=== PATIENT | male | born 1995 | race Caucasian/White ===

== ENCOUNTER 2018-10-19 14:13 | Inpatient (IN) ==
[2018-10-19] MEDS ORDERED: SODIUM CHLORIDE 0.9% 1,000 ML IV STA ×2 (14:48→20:57)
[2018-10-19] MEDS ORDERED: INSULIN REGULAR 100 UNIT/ML IV STA (14:48)
[2018-10-19 14:57] LABS: Basophils # 0.1 10*3/uL (0.0-0.2); Eosinophils # 0.2 10*3/uL (0.0-0.87); Eosinophils % 2.1 % (0.00-10.9); Hematocrit 42.6 VOL% (42.0-52.0); Hemoglobin 14.6 GM/DL (14.0-18.0); Immature Granulocytes % 0.4 %; Immature Granulocytes Absolute 0.03 #; Lymphocytes # 1.3 10*3/uL (1.4-4.0); Mean Corpuscular HGB Conc 34.3 GM/DL (32-36); Mean Corpuscular Volume 85.5 FL (87-102); Monocytes % 6.6 % (1.7-12.7); Neutrophils % 72.9 % (38.7-73.9); Platelet Count 194 T/CUMM (130-400); Red Blood Count 4.98 MC/CUMM (3.8-5.5); Red Cell Distribution Width 12.1 % (9.3-17.3); White Blood Count 7.8 T/CUMM (4-12)
[2018-10-19 15:10] LABS: Apearance,Urine CLEAR (Clear); Bilirubin,Urine Negative (Negative); Blood, Urine Negative (Negative); Glucose,Urine (UA) >=500 mg/dL (Negative); Ketones,Urine 80 mg/dL (Negative); Nitrite,Urine Negative (Negative); Protein,Urine Negative; RBC,Urine 1 /HPF (0-4); Urine Color Straw (Yellow); Urine Specific Gravity 1.026 (1.001-1.035); Urine Urobilinogen < 2.0 EU/DL (0.2-1.0)
[2018-10-19 15:17] LABS: Albumin 3.5 G/DL (3.4-5.0); Bilirubin,Total 0.8 MG/DL (0.2-1.0); Calcium 8.2 MG/DL (8.5-10.1); Osmolality,Calculated 286.5 MOS/KG (273-304); Total Protein 6.7 G/DL (6.4-8.3)
[2018-10-19 16:20] LABS: ABG Base Excess -0.9 MMOL/L (-2.5-2.5); ABG HCO3 23.6 MMOL/L (20-26); ABG Oxygen Saturation 97.9 % (95-100); ABG PCO2 40.4 MM HG (35-48); ABG PH 7.383 (7.35-7.45); ABG TCO2 20.8 MMOL/L (23-27); Allen Test Positive; Pt O2 Delivery Device Room Air
[2018-10-19 17:09] LABS: Barbiturates Screen,Urine Negative (Negative); Benzodiazepines Screen,Urine Negative (Negative); Cannabinoid Screen,Urine Negative (Negative); Opiate Screen,Urine Negative (Negative); Phencyclidine Screen,Urine Negative (Negative)
[2018-10-19] MEDS ORDERED: MAGNESIUM SULF RIDER 2 GM in PREMIX 1 EACH IV PRN (18:18)
[2018-10-19] MEDS ORDERED: SODIUM BICARB INJ 100 MEQ in STERILE WATER INJ 400 ML IV PRN (18:18)
[2018-10-19] MEDS ORDERED: DEXTROSE 50% 25 GM/50 ML SYRINGE IV PRN ×2 (18:18)
[2018-10-19] MEDS ORDERED: INSULIN REGULAR DRIP 100 ML IV SCH (18:30)
[2018-10-19 20:17] LABS: Calcium 8.2 MG/DL (8.5-10.1); Osmolality,Calculated 280.8 MOS/KG (273-304)
[2018-10-19] MEDS ORDERED: INSULIN REGULAR 100 UNIT/ML SUBCUT STA (20:54)
[2018-10-19] MEDS: POTASSIUM CHLORIDE RIDER 10 MEQ in PREMIX 1 EACH IV PRN ×2 (22:40→23:38)
[2018-10-19] MEDS ORDERED: INSULIN GLARGINE 100 UNIT/ML SUBCUT ONE ×2 (23:38→23:45)
[2018-10-19] MEDS: INSULIN REGULAR 100 UNIT/ML SUBCUT SCH (23:45)
[2018-10-19] MEDS: SODIUM CHLORIDE 0.9% 1,000 ML IV SCH (23:45)
[2018-10-19 23:59] LABS: Calcium 7.7 MG/DL (8.5-10.1); Osmolality,Calculated 285.7 MOS/KG (273-304)
[2018-10-20] MEDS: POTASSIUM CHLORIDE RIDER 10 MEQ in PREMIX 1 EACH IV PRN ×4 (00:41→06:14)
[2018-10-20] MEDS: SODIUM CHLORIDE 0.9% 1,000 ML IV SCH (01:55)
[2018-10-20 02:20] LABS: Basophils # 0.1 10*3/uL (0.0-0.2); Basophils % 0.7 % (0.0-0.8); Eosinophils # 0.3 10*3/uL (0.0-0.87); Eosinophils % 3.4 % (0.00-10.9); Hematocrit 39.3 VOL% (42.0-52.0); Hemoglobin 13.3 GM/DL (14.0-18.0); Immature Granulocytes % 0.4 %; Immature Granulocytes Absolute 0.03 #; Lymphocytes # 2.8 10*3/uL (1.4-4.0); Lymphocytes % 34.5 % (21.2-54.2); Mean Corpuscular HGB Conc 33.8 GM/DL (32-36); Mean Platelet Volume 10.8 FL (9.6-12.0); Monocytes % 6.9 % (1.7-12.7); Neutrophils % 54.1 % (38.7-73.9); Platelet Count 166 T/CUMM (130-400); Red Blood Count 4.57 MC/CUMM (3.8-5.5); Red Cell Distribution Width 12.1 % (9.3-17.3); White Blood Count 8.1 T/CUMM (4-12)
[2018-10-20 02:39] LABS: Calcium 7.5 MG/DL (8.5-10.1); Osmolality,Calculated 284.1 MOS/KG (273-304)
[2018-10-20] MEDS: INSULIN REGULAR 100 UNIT/ML SUBCUT SCH ×5 (03:55→21:14)
[2018-10-20] MEDS ORDERED: DEXTROSE 5% NACL 0.9% 1,000 ML IV SCH (04:30)
[2018-10-20 06:29] LABS: Calcium 7.6 MG/DL (8.5-10.1); Osmolality,Calculated 282.3 MOS/KG (273-304)
[2018-10-20] MEDS ORDERED: DEXTROSE 50% 25 GM/50 ML SYRINGE IV PRN (07:54)
[2018-10-20] MEDS ORDERED: GLUCAGON 1 MG VIAL IM PRN (07:54)
[2018-10-20] MEDS: DEXT 5% NACL 0.45% KCL 20 MEQ 20 MEQ/1,000 ML BAG IV SCH ×3 (07:55→15:00)
[2018-10-20] MEDS ORDERED: INSULIN LISPRO 100 UNIT/ML SUBCUT SCH ×2 (08:00)
[2018-10-20] MEDS ORDERED: SODIUM CHLORIDE 0.45% 1,000 ML IV SCH (11:18)
[2018-10-20] MEDS ORDERED: INSULIN REGULAR 100 UNIT/ML ONE (12:04)
[2018-10-20] MEDS: INSULIN LISPRO 100 UNIT/ML SUBCUT SCH ×2 (12:05→16:25)
[2018-10-20] MEDS ORDERED: INSULIN GLARGINE 100 UNIT/ML SUBCUT SCH (21:00)
[2018-10-20] MEDS ORDERED: INSULIN GLARGINE 100 UNIT/ML SUBCUT ONE (23:12)
[2018-10-21 04:59] LABS: Calcium 8.6 MG/DL (8.5-10.1); Osmolality,Calculated 289.5 MOS/KG (273-304)
[2018-10-21] MEDS: INSULIN REGULAR 100 UNIT/ML SUBCUT SCH (09:18)
[2018-10-21] MEDS: INSULIN LISPRO 100 UNIT/ML SUBCUT SCH (09:18)
[2018-10-21 09:24] VITALS: BP 93/56
== END 2018-10-21 10:30 | disposition home or self-care (01) | DRG 638 ==
LOC: N.ED 14:13 → SUATTDRO 18:10 → N.EDINP 18:18 → SUATTDRO 18:18 → N.ICU 22:21 → N.4E 10-20 19:54
PROVIDERS: ADMIT Internal Medicine; ATTEND Internal Medicine

== ENCOUNTER 2019-02-05 08:15 | Inpatient (IN) ==
[2019-02-05] MEDS ORDERED: ONDANSETRON 4 MG/2 ML VIAL ONE (09:05)
[2019-02-05] MEDS ORDERED: ONDANSETRON 4 MG/2 ML VIAL IV STA (09:05)
[2019-02-05 09:11] LABS: Basophils # 0.1 10*3/uL (0.0-0.2); Basophils % 0.7 % (0.0-0.8); Eosinophils % 0.5 % (0.00-10.9); Hematocrit 46.7 VOL% (42.0-52.0); Hemoglobin 14.9 GM/DL (14.0-18.0); Immature Granulocytes % 0.8 %; Immature Granulocytes Absolute 0.07 #; Lymphocytes # 0.9 10*3/uL (1.4-4.0); Lymphocytes % 10.6 % (21.2-54.2); Mean Corpuscular HGB Conc 31.9 GM/DL (32-36); Mean Corpuscular Volume 89.6 FL (87-102); Monocytes % 3.2 % (1.7-12.7); Neutrophils % 84.2 % (38.7-73.9); Platelet Count 178 T/CUMM (130-400); Red Blood Count 5.21 MC/CUMM (3.8-5.5); Red Cell Distribution Width 12.1 % (9.3-17.3); White Blood Count 8.4 T/CUMM (4-12)
[2019-02-05] MEDS ORDERED: INSULIN REGULAR 100 UNIT/ML IV STA (09:29)
[2019-02-05] MEDS ORDERED: SODIUM CHLORIDE 0.9% 1,000 ML IV STA (09:29)
[2019-02-05 09:34] LABS: Albumin 3.9 G/DL (3.4-5.0); Bilirubin,Total 1.2 MG/DL (0.2-1.0); Calcium 9.1 MG/DL (8.5-10.1); Osmolality,Calculated 288.4 MOS/KG (273-304); Total Protein 7.5 G/DL (6.4-8.3)
[2019-02-05 09:46] LABS: Amylase 48 U/L (25-115)
[2019-02-05 10:03] LABS: Apearance,Urine CLEAR (Clear); Bilirubin,Urine Negative (Negative); Blood, Urine Negative (Negative); Glucose,Urine (UA) >=500 mg/dL (Negative); Ketones,Urine 80 mg/dL (Negative); Mucus,Urine Occasional /LPF (Occasional); Nitrite,Urine Negative (Negative); Protein,Urine Negative; RBC,Urine 1 /HPF (0-4); Urine Color Straw (Yellow); Urine Specific Gravity 1.023 (1.001-1.035); Urine Urobilinogen < 2.0 EU/DL (0.2-1.0); WBC,Urine <1 /HPF (0-6)
[2019-02-05 10:10] LABS: ABG Base Excess -13.2 MMOL/L (-2.5-2.5); ABG Oxygen Saturation 97.8 % (95-100); ABG PCO2 27.1 MM HG (35-48); ABG PH 7.265 (7.35-7.45); ABG PO2 121.9 MM HG (80-95); ABG TCO2 12.9 MMOL/L (23-27); Allen Test Positive; Pt O2 Delivery Device Room Air
[2019-02-05] MEDS ORDERED: INSULIN REGULAR DRIP 100 ML IV PRN (10:53)
[2019-02-05] MEDS ORDERED: MAGNESIUM SULF RIDER 4 GM in PREMIX 1 EACH IV PRN (10:59)
[2019-02-05] MEDS ORDERED: MAGNESIUM SULF RIDER 2 GM in PREMIX 1 EACH IV PRN (10:59)
[2019-02-05] MEDS ORDERED: INSULIN REGULAR 100 UNIT/ML IV ONE (10:59)
[2019-02-05] MEDS ORDERED: POTASSIUM CHLORIDE RIDER 10 MEQ in PREMIX 1 EACH IV PRN (10:59)
[2019-02-05] MEDS ORDERED: SODIUM CHLORIDE 0.9% 1,000 ML IV ONE (10:59)
[2019-02-05] MEDS ORDERED: SODIUM BICARB INJ 100 MEQ in STERILE WATER INJ 400 ML IV PRN (10:59)
[2019-02-05] MEDS ORDERED: SODIUM CHLORIDE 0.9% IV PRN (10:59)
[2019-02-05] MEDS ORDERED: DEXTROSE 10% 250 ML BAG IV PRN ×2 (10:59)
[2019-02-05] MEDS ORDERED: SODIUM PHOSPHATE IV PRN (10:59)
[2019-02-05] MEDS ORDERED: INSULIN REGULAR DRIP 100 ML IV SCH (11:00)
[2019-02-05 12:11] LABS: Calcium 8.7 MG/DL (8.5-10.1); Osmolality,Calculated 293.1 MOS/KG (273-304)
[2019-02-05] MEDS: SODIUM CHLORIDE 0.9% 1,000 ML IV SCH ×4 (13:00→19:10)
[2019-02-05 15:32] LABS: Calcium 7.5 MG/DL (8.5-10.1); Osmolality,Calculated 288.7 MOS/KG (273-304)
[2019-02-05 19:38] LABS: Calcium 7.9 MG/DL (8.5-10.1); Osmolality,Calculated 286.5 MOS/KG (273-304)
[2019-02-05] MEDS: SODIUM CHLOR 0.45% KCL 20 MEQ 20 MEQ/1,000 ML BAG IV SCH (20:45)
[2019-02-05] MEDS ORDERED: DEXT 5% NACL 0.45% KCL 20 MEQ 20 MEQ/1,000 ML BAG IV SCH (21:30)
[2019-02-05] MEDS: DEXT 5% NACL 0.45% KCL 20 MEQ 20 MEQ/1,000 ML BAG IV SCH (23:40)
[2019-02-06 00:14] LABS: Calcium 7.7 MG/DL (8.5-10.1); Osmolality,Calculated 277.8 MOS/KG (273-304)
[2019-02-06] MEDS: SODIUM CHLOR 0.45% KCL 20 MEQ 20 MEQ/1,000 ML BAG IV SCH ×3 (01:07→09:39)
[2019-02-06] MEDS ORDERED: SODIUM CHLORIDE 0.45% 1,000 ML IV SCH (03:59)
[2019-02-06 06:22] LABS: Basophils # 0.1 10*3/uL (0.0-0.2); Basophils % 0.5 % (0.0-0.8); Eosinophils # 0.1 10*3/uL (0.0-0.87); Eosinophils % 0.8 % (0.00-10.9); Hemoglobin 12.7 GM/DL (14.0-18.0); Immature Granulocytes % 0.4 %; Immature Granulocytes Absolute 0.06 #; Lymphocytes # 1.4 10*3/uL (1.4-4.0); Mean Corpuscular HGB Conc 33.4 GM/DL (32-36); Mean Corpuscular Volume 87.2 FL (87-102); Monocytes % 7.5 % (1.7-12.7); Neutrophils % 80.8 % (38.7-73.9); Platelet Count 177 T/CUMM (130-400); Red Blood Count 4.36 MC/CUMM (3.8-5.5); Red Cell Distribution Width 12.2 % (9.3-17.3); White Blood Count 14.4 T/CUMM (4-12)
[2019-02-06 06:40] LABS: Albumin 2.9 G/DL (3.4-5.0); Bilirubin,Total 0.7 MG/DL (0.2-1.0); Calcium 7.8 MG/DL (8.5-10.1); Osmolality,Calculated 272.7 MOS/KG (273-304)
[2019-02-06] MEDS: DEXT 5% NACL 0.45% KCL 20 MEQ 20 MEQ/1,000 ML BAG IV SCH (07:45)
[2019-02-06] MEDS ORDERED: GLUCAGON 1 MG VIAL IM PRN (09:40)
[2019-02-06] MEDS ORDERED: DEXTROSE 50% 25 GM/50 ML VIAL IV PRN (09:40)
[2019-02-06] MEDS ORDERED: SODIUM CHLORIDE 0.9% 1,000 ML IV SCH (10:00)
[2019-02-06] MEDS ORDERED: INSULIN REGULAR 100 UNIT/ML SUBCUT SCH (11:30)
[2019-02-06] MEDS ORDERED: POTASSIUM CHLORIDE 20 MEQ TABLET PO ONE (13:23)
[2019-02-06 14:10] VITALS: BP 93/53
== END 2019-02-06 15:10 | disposition home or self-care (01) | DRG 638 ==
LOC: N.ED 08:15 → SUATTDRO 10:59 → N.CC 10:59
PROVIDERS: ADMIT Emergency Medicine; ATTEND Internal Medicine Nephrology